=== PATIENT | female | born 1955 | race Caucasian/White ===

== ENCOUNTER 2024-01-05 07:34 | Outpatient (CLI) | payer OTHER | END 2024-01-05 07:39 | disposition home or self-care (01) | LOC: SONOGRAMA 07:34 | PROVIDERS: ATTEND Pathology Anatomic Pathology & Clinical Pathology | DX: D34 Benign neoplasm of thyroid gland (principal); E07.89 Other specified disorders of thyroid; E04.1 Nontoxic single thyroid nodule ==

== ENCOUNTER 2024-10-01 20:36 | Emergency (ER) | payer OTHER ==
[~2024-10-01] VITALS: Ht 157.5 cm; Wt 73.5 kg
[2024-10-01] MEDS ORDERED: LOSARTAN POTAS100 MG PO (20:48)
[2024-10-01] MEDS ORDERED: TOPROL XL50 M1 PO (20:48)
[2024-10-01] MEDS ORDERED: CEFTRIAXONE SODIUM 1,000 MG VIAL IM STA (21:46)
[2024-10-01] MEDS ORDERED: CEFTRIAXONE SODIUM 1,000 MG VIAL ONE (21:50)
== END 2024-10-01 22:05 | disposition home or self-care (01) ==
LOC: ER 20:38
DX: R05.9 Cough, unspecified (principal); Z91.013 Allergy to seafood
CPT/HCPCS: 96372; 99282; J0696